=== PATIENT | male | born 1985 | race African-American/Black ===

== ENCOUNTER 2021-11-16 10:51 | Emergency (ER) | payer OTHER ==
[2021-11-16 13:20] VITALS: BP 155/91; PULSE 66; TEMP 98.3; BMI 23.0
[2021-11-16] MEDS ORDERED: SODIUM CHLORIDE 1,000 ML IV STA (14:59)
[2021-11-16] MEDS ORDERED: ONDANSETRON 4 MG/2 ML VIAL IVPUSH ONE (14:59)
[2021-11-16] MEDS ORDERED: ACETAMINOPHEN 1000 MG/100 ML VIAL IVPB ONE (14:59)
[2021-11-16] MEDS ORDERED: ACETAMINOPHEN INJECTION 100 ML IVPB ONE (15:30)
[2021-11-16] MEDS ORDERED: ONDANSETRON 4 MG/2 ML VIAL ONE (16:18)
[2021-11-16 17:55] LABS: BASO % 0.2 % (0-2.0); LYMPH % 3.2 % (8-40); MCHC 34.2 g/dl (32.0-35.9); MEAN CELL VOLUME 93.6 fl (80-96); MEAN PLT VOLUME 10.3 fl (7.5-11.1); MONO % 9.4 % (3.8-10.2); NEUT % 87.2 % (42.8-82.8); PLATELET COUNT 191 10^3/uL (134-434); RBC 4.38 M/mm3 (4.00-5.60); RDW 13.3 % (11.9-15.9); WHITE BLOOD COUNT 4.5 K/mm3 (4.0-10.0)
[2021-11-16 18:07] LABS: CALCIUM 9.7 mg/dL (8.5-10.1)
[2021-11-16 18:08] LABS: ALBUMIN 4.3 g/dl (3.4-5.0); BLOOD UREA NITROGEN 5.7 mg/dL (7-18)
[2021-11-16 18:11] LABS: CREATININE 0.8 mg/dL (0.55-1.3)
[2021-11-16 18:12] LABS: BILIRUBIN,TOTAL 0.3 mg/dL (0.2-1); TOT PROT 7.7 g/dl (6.4-8.2)
== END 2021-11-16 18:30 | disposition home or self-care (01) ==
LOC: JER 10:51
PROC: 3E0333Z Introduction of Anti-inflammatory into Peripheral Vein, Percutaneous Approach (ICD-10-PCS; principal; 2021-11-16)
PROC: 3E033GC Introduction of Other Therapeutic Substance into Peripheral Vein, Percutaneous Approach (ICD-10-PCS; 2021-11-16)
PROC: 3E0337Z Introduction of Electrolytic and Water Balance Substance into Peripheral Vein, Percutaneous Approach (ICD-10-PCS; 2021-11-16)
DX: U07.1 COVID-19 (principal); R11.11 Vomiting without nausea
CPT/HCPCS: 36415; 80053; 83690; 85025; 99284-25; C9803; J0131; U0003; U0005

== ENCOUNTER 2021-11-24 13:06 | Emergency (ER) | payer OTHER ==
[2021-11-24 13:30] VITALS: BP 130/78; PULSE 98; TEMP 97.8; BMI 23.0
[2021-11-24] MEDS ORDERED: ONDANSETRON *ODT* 4 MG TABLET SL ONE (13:33)
[2021-11-24] MEDS ORDERED: ONDANSETRON *ODT* 4 MG TABLET ONE (14:29)
== END 2021-11-24 14:37 | disposition home or self-care (01) ==
LOC: JER 13:06
DX: U07.1 COVID-19 (principal); M65.341 Trigger finger, right ring finger
CPT/HCPCS: 99283-25; Q0162